=== PATIENT | male | born 2005 | race Caucasian/White ===

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

== ENCOUNTER 2025-04-18 19:00 | Emergency (ER) | payer OTHER ==
[~2025-04-18] VITALS: Ht 195.6 cm; Wt 88.0 kg
--- OUTSIDE RECORDS SUMMARY | 2025-04-18 19:07 | XMS ---
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 Daniel has no Care Guidelines for this patient. [facility] VISIT COUNT (12 MO.) 1 [facility] TOTAL 1 NOTE: Visits indicate total known visits. ED/C VISIT TRACKING (12 MO.) 04/18/2025 19:00 [facility] TYPE[facility] Emergency COMPLAINT: - ABDOM PAIN INPATIENT VISIT TRACKING (12 MO.) No inpatient visits to display in this time frame [id number]
[2025-04-18] MEDS ORDERED: CEPHALEXIN500 MG PO (20:29)
[2025-04-18] MEDS ORDERED: NEOMYCIN-POLYMY10 ML OTIC (20:29)
[2025-04-18] MEDS ORDERED: MORPHINE SULFATE 4 MG/ML VIAL IV ONE (20:45)
[2025-04-18] MEDS ORDERED: PROCHLORPERAZINE EDISYLATE 10 MG/2 ML VIAL IV ONE (20:45)
[2025-04-18] MEDS ORDERED: SODIUM CHLORIDE 0.9% 1,000 ML IV ONE (20:45)
[2025-04-18 21:06] LABS: BASOPHILS 0.1 % (0.2-1.2); EOSINOPHILS 0.1 % (0.8-7.0); HEMATOCRIT 43.7 % (40.1-51.0); HEMOGLOBIN 14.9 g/dL (13.7-17.5); LYMPHOCYTES 5.1 % (21.8-53.1); MCH 31.2 PG (25.7-32.2); MCHC 34.1 g/dL (32.3-36.5); MCV 91.6 fL (79.0-92.2); MONOCYTES 7.3 % (5.3-12.2); NEUTROPHILS 87.1 % (34.0-67.9); PLATELET COUNT 202 K/uL (163-337); RBC 4.77 M/uL (4.63-6.08)
[2025-04-18 21:21] LABS: ALBUMIN 3.9 g/dL (3.4-5.0); ALBUMIN/GLOBULIN RATIO 1.3 (1.1-2.4); ANION GAP 14.5 (7-21); BILIRUBIN, TOTAL 1.3 mg/dL (0.2-1.0); BUN/CREATININE RATIO 12.72 (6.0-28.6); CALCIUM 9.2 mg/dL (8.5-10.1); CREATININE, SERUM 1.1 mg/dL (0.70-1.30); POTASSIUM 4.5 mmol/L (3.5-5.1); PROTEIN, TOTAL 6.9 g/dL (6.4-8.2)
[2025-04-18] MEDS ORDERED: ondansetron HCL 4 MG/2 ML VIAL IV ONE (21:45)
[2025-04-18 21:52] LABS: BILIRUBIN, URINE POSITIVE (negative); BLOOD/HGB, URINE NEGATIVE (Negative); KETONE, URINE >=80 (Negative); LEUK ESTERASE, URINE NEGATIVE (negative); NITRITE, URINE NEGATIVE (negative)
[2025-04-18] MEDS ORDERED: PROMETHEGAN25 MG PR (21:58)
[2025-04-18] MEDS ORDERED: ONDANSETRON ODT8 MG PO (21:58)
[2025-04-18] MEDS ORDERED: ANASPAZ0.125 MG PO (21:58)
[2025-04-18] MEDS ORDERED: CHOLESTYRAMINE P4 GM PO (21:58)
[2025-04-18] MEDS ORDERED: PROMETHAZINE HCL 25 MG SUPP. HOME.PACK PR ONE (22:15)
[2025-04-18] MEDS ORDERED: ONDANSETRON 4 MG HOME.PACK SL ONE (22:15)
[2025-04-18 22:39] VITALS: BP 137/68
== END 2025-04-18 22:39 | disposition home or self-care (01) ==
LOC: ED 19:00
PROVIDERS: Family Medicine
DX: K52.9 Noninfective gastroenteritis and colitis, unspecified (principal); Z79.899 Other long term (current) drug therapy; Z88.0 Allergy status to penicillin
CPT/HCPCS: 36415; 74177; 80053; 81003; 83690; 85025; 87045; 87046; 96361; 96375; 99284-25; A9270; J0780; J2270; J2405; J7030; Q9967